=== PATIENT | female | born 1990 | race African-American/Black ===

== ENCOUNTER 2016-09-29 19:39 | Emergency (ER) | payer OTHER ==
[~2016-09-29] VITALS: Ht 180.3 cm; Wt 52.0 kg
[~2016-09-29 19:39] MED LIST: IBUP-232 PO
[2016-09-29 19:47] VITALS: BP 122/76; PULSE 71; RESP 20; TEMP 98.3; O2SAT 99
[2016-09-29] MEDS ORDERED: LIDOCAINE HCL 1% 50 ML VIAL INFIL ONE (20:30)
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
[2016-09-29] MEDS ORDERED: ceFAZolin INJ 1,000 MG VIAL ONE (20:39)
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
[2016-09-29] MEDS ORDERED: CEPH-460 PO (23:05)
== END 2016-09-29 23:31 ==
LOC: NEDAMB 19:39 → NEPB 23:31
DX: S61.411A Laceration without foreign body of right hand, initial encounter (principal); S61.216A Laceration without foreign body of right little finger without damage to nail, initial encounter; S61.011A Laceration without foreign body of right thumb without damage to nail, initial encounter; F17.210 Nicotine dependence, cigarettes, uncomplicated; W22.8XXA Striking against or struck by other objects, initial encounter; X78.0XXA Intentional self-harm by sharp glass, initial encounter
CPT/HCPCS: 12002; 73130; 96372; 99283; J0690

== ENCOUNTER 2017-10-04 01:11 | Emergency (ER) | payer BC ==
[~2017-10-04 01:11] MED LIST changes: +CEPH-460 PO; -IBUP-232 PO
[2017-10-04 01:31] VITALS: RESP 22; O2SAT 98
[2017-10-04] MEDS ORDERED: LIDOCAINE HCL 1% 20 ML VIAL INFIL ONE (01:45)
[2017-10-04 01:52] LABS: BICARBONATE 22.5 MEQ/L (21.0-32.0); CALCIUM 8.7 MG/DL (8.5-10.1); CREATININE 0.89 MG/DL (0.50-1.00)
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
[2017-10-04] MEDS ORDERED: ceFAZolin 2 GM PREMIX 50 ML IV ONE (02:15)
[2017-10-04] MEDS ORDERED: ONDANSETRON HCL 4 MG/2 ML VIAL IV PUSH ONE (02:15)
[2017-10-04] MEDS ORDERED: DIPHTH/TETANUS/ACEL PERTUSSIS (BOOSTER) 0.5 ML VIAL/PFS IM ONE (02:15)
[2017-10-04] MEDS ORDERED: MORPHINE SULFATE 2 MG/ML INJ IV PUSH ONE (02:15)
[2017-10-04] MEDS ORDERED: SODIUM CHLORID 0.9% 500 ML INJ 500 ML IV ONE (02:15)
--- NOTE | 2017-10-04 02:16 | RADRPT ---
EXAM DATE/TIME: 10/04/2017 01:55 [facility] COMPARISON: No previous studies available for comparison. INDICATIONS : Trauma, fall. Head laceration. RADIATION DOSE: 56.35 CTDIvol (mGy) MEDICAL HISTORY : None SURGICAL HISTORY : None. ENCOUNTER: Initial ACUITY: 1 day PAIN SCALE: 7/10 LOCATION: cranial TECHNIQUE: Multiple contiguous axial images were obtained of the head. Using automated exposure control and adj ustment of the mA and/or kV according to patient size, radiation dose was kept as low as reasonably a chievable to obtain optimal diagnostic quality images. DICOM format image data is available electro nically for review and comparison. FINDINGS: CEREBRUM: The ventricles are normal for age. No evidence of midline shift, mass lesion, hemorrhage or acute in farction. No extra-axial fluid collections are seen. POSTERIOR FOSSA: The cerebellum and brainstem are intact. The 4th ventricle is midline. The cerebellopontine angle i s unremarkable. EXTRACRANIAL: The visualized portion of the orbits is intact. SKULL: The calvaria is intact. No evidence of skull fracture. CONCLUSION: 1. No acute intracranial abnormality. Quintin Norton MD on October 04, 2017 at 2:15 Board Certified Radiologist. This report was verified electronically.
--- NOTE | 2017-10-04 02:18 | RADRPT ---
EXAM DATE/TIME: 10/04/2017 01:55 [facility] COMPARISON: No previous studies available for comparison. INDICATIONS : Trauma, fall. RADIATION DOSE: 21.96 CTDIvol (mGy) MEDICAL HISTORY : None SURGICAL HISTORY : None. ENCOUNTER: Initial ACUITY: 1 day PAIN SCALE: 3/10 LOCATION: neck TECHNIQUE: Volumetric scanning of the cervical spine was performed. Multiplanar reconstructions in the sagittal, coronal and oblique axial planes were performed. Using automated exposure control and adjustment o f the mA and/or kV according to patient size, radiation dose was kept as low as reasonably achievable to obtain optimal diagnostic quality images. DICOM format image data is available electronically f or review and comparison. FINDINGS: Vertebral body heights are maintained. Osseous structures are intact without evidence for acute bony fracture. Dens is intact. Sagittal alignment is maintained. There is a normal C1-2 relationship. Face ts are normally aligned. There is no significant prevertebral soft tissue hematoma. No significant ce rvical adenopathy or gross mass. The thyroid appears unremarkable. Visualized lung apices are clear w ithout pneumothorax. CONCLUSION: 1. No acute fracture or subluxation. Quintin Norton MD on October 04, 2017 at 2:16 Board Certified Radiologist. This report was verified electronically.
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
[2017-10-04 02:23] LABS: AUTOMATED NEUTROPHIL # 6.5 TH/MM3 (1.8-7.7); BASOPHIL # 0.1 TH/MM3 (0-0.2); BASOPHIL % 1.2 % (0.0-2.0); EOSINOPHIL # 0.1 TH/MM3 (0-0.4); HEMATOCRIT 37.6 % (35.0-46.0); HEMOGLOBIN 13.3 GM/DL (11.6-15.3); LYMPH % 22.5 % (9.0-44.0); LYMPHOCYTE # 2.2 TH/MM3 (1.0-4.8); MEAN CELL VOLUME 95.2 FL (80.0-100.0); MEAN CORPUSCULAR HEMOGLOBIN 33.8 PG (27.0-34.0); MEAN CORPUSCULAR HGB CONC 35.5 % (32.0-36.0); MEAN PLATELET VOLUME 9.1 FL (7.0-11.0); MONO % 7.3 % (0.0-8.0); MONOCYTE # 0.7 TH/MM3 (0-0.9); PLATELET COUNT 164 TH/MM3 (150-450); RED BLOOD COUNT 3.95 MIL/MM3 (4.00-5.30); RED CELL DISTRIBUTION WIDTH 15.2 % (11.6-17.2); WHITE BLOOD COUNT 9.6 TH/MM3 (4.0-11.0)
[2017-10-04] MEDS ORDERED: oxyCODONE/ACETAMINOPHEN 5 MG/325 MG TAB PO ONE (04:00)
[2017-10-04] MEDS ORDERED: HYDR-3516 PO (04:02)
[2017-10-04] MEDS ORDERED: CEPH-460 PO (04:02)
[2017-10-04 04:09] VITALS: BP 139/79
[2017-10-04 04:59] LABS: INTERNATIONAL NORMALIZED RATIO 1.1 RATIO; PROTHROMBIN TIME - PATIENT 10.8 SEC (9.8-11.6)
--- NOTE | 2017-10-14 12:11 | PD ---
Physical Exam Date Seen by Provider: Oct 04, 2017 Narrative For full history and physical examination please see previous providers note. I was asked to repair laceration to patient's lip and mouth. Data Data Orders Orders Complete Blood Count With Diff (10/04/17 01:24) Basic Metabolic Panel (Bmp) (10/04/17 01:24) Prothrombin Time / Inr (Pt) (10/04/17 01:24) Act Partial Throm Time (Ptt) (10/04/17 01:24) Ct Brain W/O Iv Contrast(Rout) (10/04/17 01:24) Iv Access Insert/Monitor (10/04/17 01:24) Ecg Monitoring (10/04/17 01:24) Oximetry (10/04/17 01:24) Ed Urine Pregnancytest Poc (10/04/17 01:24) Ct Cerv Spine W/O Contrast (10/04/17 01:24) Ct Facial Bones W/O Iv Cont (10/04/17 01:24) Lidocaine 1% Inj (Xylocaine 1% Inj) (10/04/17 01:45) Cefazolin 2 Gm Premix (Ancef 2 Gm Premix (10/04/17 02:15) Tvuh-Prn-Czsupf (Booster) Inj (Boostrix (10/04/17 02:15) Sodium Chlorid 0.9% 500 Ml Inj (Ns 500 M (10/04/17 02:15) Morphine Inj (Morphine Inj) (10/04/17 02:15) Ondansetron Inj (Zofran Inj) (10/04/17 02:15) Oxycodone-Acetamin 5-325 Mg (Percocet (10/04/17 04:00) Ed Discharge Order (10/04/17 04:03) Labs Laboratory Tests Test 10/04/17 01:25 10/04/17 04:13 White Blood Count 9.6 TH/MM3 Red Blood Count 3.95 MIL/MM3 Hemoglobin 13.3 GM/DL Hematocrit 37.6 % Mean Corpuscular Volume 95.2 FL Mean Corpuscular Hemoglobin 33.8 PG Mean Corpuscular Hemoglobin Concent 35.5 % Red Cell Distribution Width 15.2 % Platelet Count 164 TH/MM3 Mean Platelet Volume 9.1 FL Neutrophils (%) (Auto) 68.0 % Lymphocytes (%) (Auto) 22.5 % Monocytes (%) (Auto) 7.3 % Eosinophils (%) (Auto) 1.0 % Basophils (%) (Auto) 1.2 % Neutrophils # (Auto) 6.5 TH/MM3 Lymphocytes # (Auto) 2.2 TH/MM3 Monocytes # (Auto) 0.7 TH/MM3 Eosinophils # (Auto) 0.1 TH/MM3 Basophils # (Auto) 0.1 TH/MM3 CBC Comment AUTO DIFF Differential Comment AUTO DIFF CONFIRMED Platelet Estimate NORMAL Platelet Morphology Comment NORMAL Hematology Comments Blood Urea Nitrogen 8 MG/DL Creatinine 0.89 MG/DL Random Glucose 112 MG/DL Calcium Level 8.7 MG/DL Sodium Level 142 MEQ/L Potassium Level 3.4 MEQ/L Chloride Level 107 MEQ/L Carbon Dioxide Level 22.5 MEQ/L Anion Gap 13 MEQ/L Estimat Glomerular Filtration Rate 94 ML/MIN Prothrombin Time 10.8 SEC Prothromb Time International Ratio 1.1 RATIO Activated Partial Thromboplast Time 26.9 SEC MDM Medical Record Reviewed: Yes Supervised Visit with LUKE: Yes Procedures Procedure Narrative LACERATION LOCATION: Upper lip below nose and inner lower lip LENGTH: 1.5 cm and 2 cm respectively NUMBER OF STITCHES/BRAULIO: 4 stitches to the outer upper lip, 9 stitches to the inner lower lip REPAIR: The area of the laceration was prepped with Betadine and sterilely draped. The laceration was infiltrated with 1% lidocaine. The wound was copiously irrigated and explored without evidence of foreign body, tendon injury or neurovascular injury. The wound was closed using 5-0 Prolene and 4-0 Vicryl. This was a 1 layer repair. A sterile dressing was applied. The patient was advised to keep the dressing clean and dry. Patient tolerated the procedure well. Diagnosis Primary Impression: Facial laceration Additional Impressions: Facial contusion Head injury Fall Laceration of buccal mucosa Patient Instructions: General Instructions, Head Injury (ED), Contusion in Adults (ED), Facial Laceration (ED) Departure Forms: Tests/Procedures Scripts Cephalexin (Keflex) 500 Mg Cap 500 MG PO Q8H for Infection, #21 CAP 0 Refills Prov: Megan Aguillon MD 10/04/17 Hydrocodone-Acetaminophen (Hydrocodone-Acetaminophen) 5-325 mg Tab 1 TAB PO Q6H Y for PAIN, #12 TAB 0 Refills Prov: Megan Aguillon MD 10/04/17 Disposition: 01 DISCHARGE HOME Condition: Stable Kalpana Perez Oct 14, 2017 12:11
== END 2017-10-04 05:12 | disposition home or self-care (01) ==
LOC: NEPC 01:11
DX: S01.81XA Laceration without foreign body of other part of head, initial encounter (principal); S00.83XA Contusion of other part of head, initial encounter; S01.512A Laceration without foreign body of oral cavity, initial encounter; S09.90XA Unspecified injury of head, initial encounter; F17.210 Nicotine dependence, cigarettes, uncomplicated; Z23 Encounter for immunization; W10.8XXA Fall (on) (from) other stairs and steps, initial encounter
CPT/HCPCS: 12013; 70450; 70486; 72125; 80048; 84703; 85025; 85610; 85730; 90471; 90715; 96365; 96366; 96375; 99284; J0690; J2270; J2405; J7040

== ENCOUNTER 2017-10-25 18:41 | Emergency (ER) | payer BC ==
[~2017-10-25 18:41] MED LIST changes: +HYDR-3516 PO
[2017-10-25 19:09] VITALS: BP 134/61; PULSE 76; RESP 16; TEMP 98.5; O2SAT 100
--- NOTE | 2017-10-25 19:50 | PD ---
HPI Chief Complaint: Wound/Suture/Staple Re-Check Time Seen by Provider: 19:09 Travel History International Travel<30 days: No Contact w/Intl Traveler<30days: No Traveled to known affect area: No History of Present Illness HPI Patient is a 26-year-old female presenting to the emergency department for evaluation of dissolvable stitches in her lower lip that are not resolving. She states it is painful and tender. She denies any fever, chills, drainage. She states that the other stitches have healed well however she does not feel as if these are dissolving and falling out. PFSH Past Medical History Medical History: Denies Significant Hx Diminished Hearing: No ?: Not LMP: 10/20/17 : 0 Social History Alcohol Use: Yes (10 wine per week) Tobacco Use: Yes (1/2 pk per day) Substance Use: No Allergies-Medications (Allergen,Severity, Reaction): Coded Allergies: No Known Allergies (Unverified Allergy, Unknown, 10/04/17) Reported Meds & Prescriptions Reported Meds & Active Scripts Active Keflex (Cephalexin) 500 Mg Cap 500 Mg PO Q8H Hydrocodone-Acetaminophen 5-325 mg Tab 1 Tab PO Q6H PRN Review of Systems Except as stated in HPI: all other systems reviewed are Neg Skin: Positive Other Physical Exam Narrative GENERAL: Well-developed, well-nourished, alert female. Presenting in no acute distress. SKIN: Warm and dry. HEAD: Normocephalic. EYES: No scleral icterus. No injection or drainage. NECK: Supple, trachea midline. No JVD or lymphadenopathy. CARDIOVASCULAR: Regular rate RESPIRATORY: No accessory muscle use. Data Data Last Documented VS Vital Signs Date Time Temp Pulse Resp B/P (MAP) Pulse Ox O2 Delivery O2 Flow Rate FiO2 10/25/17 19:09 98.5 76 16 134/61 (85) 100 [facility] Medical Decision Making Medical Screen Exam Complete: Yes Emergency Medical Condition: Yes Interpretation(s) Vital Signs Date Time Temp Pulse Resp B/P (MAP) Pulse Ox O2 Delivery O2 Flow Rate FiO2 10/25/17 19:09 98.5 76 16 134/61 (85) 100 Differential Diagnosis Retained stitches versus cellulitis versus abscess versus other Narrative Course Patient is well-appearing 26-year-old female presenting to have stitches removed from her inner lower lip. Patient's vital signs are stable, she is awaiting bed placement. Patient presented to the triage stating that she would come back in the morning and she had to go to work. Patient left the emergency department AMA. AMA: The risks of leaving against medical advice without further evaluation treatment were discussed with the patient. These risks include cardiac dysfunction, cardiac dysrhythmia, possible heart attack, possible stroke or . The patient indicated understanding of these risks and appeared to have the capacity to make this decision. Diagnosis Primary Impression: Left against medical advice Kalpana Perez Oct 25, 2017 19:50
== END 2017-10-26 01:44 | disposition left against medical advice (07) ==
LOC: NED 18:41
DX: Z48.02 Encounter for removal of sutures (principal); Z53.20 Procedure and treatment not carried out because of patient's decision for unspecified reasons
CPT/HCPCS: 99281

== ENCOUNTER 2017-11-08 21:47 | Emergency (ER) | payer BC | END 2017-11-08 23:03 | disposition left against medical advice (07) | LOC: NED 21:47 | DX: M54.9 Dorsalgia, unspecified (principal) | CPT/HCPCS: 99281 ==